=== PATIENT | female | born 1990 | race Caucasian/White ===

== ENCOUNTER 2019-03-30 08:00 | Emergency (ER) | payer OTHER ==
[~2019-03-30] VITALS: Ht 167.6 cm; Wt 88.9 kg
[2019-03-30 08:10] VITALS: Ht 167.6 cm; Wt 88.9 kg
[2019-03-30 09:29] VITALS: BP 149/96
== END 2019-03-30 09:36 | disposition home or self-care (01) ==
LOC: ED 08:00
DX: T63.481A Toxic effect of venom of other arthropod, accidental (unintentional), initial encounter (principal); Y92.89 Other specified places as the place of occurrence of the external cause